=== PATIENT | male | born 1955 | race Caucasian/White ===

== ENCOUNTER 2019-10-23 13:16 | Emergency (ER) | payer OTHER ==
[~2019-10-23] VITALS: Ht 172.7 cm; Wt 70.5 kg
[2019-10-23] MEDS ORDERED: PANT40TA25 PO (13:56)
[2019-10-23] MEDS ORDERED: LISI-661 PO (13:56)
[2019-10-23] MEDS ORDERED: AMLO5TAB9 PO (13:56)
[2019-10-23] MEDS ORDERED: KCL PO (14:04)
[2019-10-23] MEDS ORDERED: BENZ0.5T44 PO (14:04)
[2019-10-23] MEDS ORDERED: DIVA-76 PO (14:04)
[2019-10-23] MEDS ORDERED: QUET200T PO (14:04)
[2019-10-23] MEDS ORDERED: LEVO330T2 PO (14:04)
[2019-10-23] MEDS ORDERED: LORA-999 PO (14:04)
[2019-10-23] MEDS ORDERED: RISP2 PO (14:04)
[2019-10-23] MEDS ORDERED: HYDR25TA PO (14:04)
[2019-10-23] MEDS ORDERED: ESCI10TA PO (14:04)
[2019-10-23] MEDS ORDERED: TRAZ-252 PO (14:04)
[2019-10-23] MEDS ORDERED: MIDAZOLAM HCL 2 MG/2 ML VIAL IVP ONE (14:45)
[2019-10-23] MEDS ORDERED: LORazepam 2 MG/ML VIAL IVP ONE (15:00)
[2019-10-23] MEDS ORDERED: HALOPERIDOL LACTATE 5 MG/ML VIAL IVP ONE (15:00)
[2019-10-23 15:19] LABS: BASOPHILS % (AUTO) 0.5 % (0.0-2.0); EOSINOPHILS % (AUTO) 2.1 % (1.0-6.0); HEMATOCRIT 37.7 % (41-53); HEMOGLOBIN 12.9 g/dL (13.5-17.5); LYMPHOCYTES # (AUTO) 1.4 K/uL (1.0-4.8); LYMPHOCYTES % (AUTO) 23.5 % (22.0-44.0); MEAN CORPUSCULAR HEMOGLOBIN 32.2 pg (26.0-34.0); MEAN CORPUSCULAR HGB CONC 34.1 G/dL (31.0-37.0); MEAN CORPUSCULAR VOLUME 94 fL (80-100); MONOCYTES # (AUTO) 0.6 K/uL (0.1-1.0); MONOCYTES % (AUTO) 10.2 % (2.0-9.0); NEUTROPHILS # (AUTO) 3.8 K/uL (1.8-7.7); NEUTROPHILS % (AUTO) 63.7 % (40.0-70.0); PLATELET COUNT (AUTO) 104 K/uL (150-450); RED BLOOD CELL COUNT(AUTO) 3.99 MIL/uL (4.50-5.90)
[2019-10-23 15:37] LABS: ANION GAP 10 mmol/L (8-16); CALCIUM, TOTAL 8.9 mg/dL (8.8-10.5); CARBON DIOXIDE 26 mmol/L (22-29); CHLORIDE 104 mmol/L (98-107); CREATININE 0.76 mg/dL (0.60-1.30); GLOMERULAR FILTR. RATE CALC > 60 mL/min (>60); GLUCOSE,RANDOM 90 mg/dL (70-110); POTASSIUM 3.6 mmol/L (3.5-5.1); SODIUM SERUM 140 mmol/L (136-145); UREA NITROGEN, BLOOD 16 mg/dL (7-18)
[2019-10-23 15:44] LABS: ALANINE AMINOTRANSFERASE 20 U/L (12-78); ALBUMIN 3.5 g/dL (3.4-5.0); ALKALINE PHOSPHATASE 69 U/L (46-116); ASPARTATE AMINOTRANSFERASE 31 U/L (15-37); BILIRUBIN,TOTAL 0.4 mg/dL (0.1-1.0); TOTAL PROTEIN, SERUM 7.9 g/dL (6.4-8.2); VALPROIC ACID 70 mcg/mL (50-100)
[2019-10-23 19:39] VITALS: BP 101/61
== END 2019-10-23 19:43 | disposition home or self-care (01) ==
LOC: EMS 13:24
DX: G40.909 Epilepsy, unspecified, not intractable, without status epilepticus (principal); I10 Essential (primary) hypertension; K21.9 Gastro-esophageal reflux disease without esophagitis; F32.9 Major depressive disorder, single episode, unspecified; Z98.890 Other specified postprocedural states; Z79.899 Other long term (current) drug therapy
CPT/HCPCS: 36415; 70450; 71045; 80053; 80164; 84484; 85025; 93005; 96374; 96375; 99285; J1630; J2060; J2250

== ENCOUNTER 2019-11-14 17:53 | Inpatient (IN) | payer OTHER ==
[~2019-11-14] VITALS: Ht 172.7 cm; Wt 69.7 kg
[~2019-11-14 17:53] MED LIST: AMLO5TAB9 PO; BENZ0.5T44 PO; DIVA-76 PO; ESCI10TA PO; HYDR-1475 PO; KCL PO; LEVO330T2 PO; LISI-661 PO; LORA-999 PO; PANT40TA25 PO; QUET200T PO; RISP2 PO; TRAZ-252 PO
[2019-11-14 19:32] LABS: BASOPHILS % (AUTO) 0.9 % (0.0-2.0); EOSINOPHILS % (AUTO) 1.4 % (1.0-6.0); HEMATOCRIT 35.9 % (41-53); HEMOGLOBIN 12.3 g/dL (13.5-17.5); LYMPHOCYTES # (AUTO) 0.8 K/uL (1.0-4.8); LYMPHOCYTES % (AUTO) 16.2 % (22.0-44.0); MEAN CORPUSCULAR HEMOGLOBIN 32.7 pg (26.0-34.0); MEAN CORPUSCULAR HGB CONC 34.3 G/dL (31.0-37.0); MEAN CORPUSCULAR VOLUME 95 fL (80-100); MONOCYTES # (AUTO) 0.7 K/uL (0.1-1.0); MONOCYTES % (AUTO) 12.7 % (2.0-9.0); NEUTROPHILS # (AUTO) 3.6 K/uL (1.8-7.7); NEUTROPHILS % (AUTO) 68.8 % (40.0-70.0); RED BLOOD CELL COUNT(AUTO) 3.77 MIL/uL (4.50-5.90); RED CELL DISTRIBUTION WIDTH 13.1 % (11.5-14.5)
[2019-11-14 19:44] LABS: ANION GAP 9 mmol/L (8-16); CARBON DIOXIDE 29 mmol/L (22-29); CHLORIDE 99 mmol/L (98-107); CREATININE 0.66 mg/dL (0.60-1.30); GLOMERULAR FILTR. RATE CALC > 60 mL/min (>60); GLUCOSE,RANDOM 117 mg/dL (70-110); POTASSIUM 3.1 mmol/L (3.5-5.1); SODIUM SERUM 137 mmol/L (136-145); UREA NITROGEN, BLOOD 20 mg/dL (7-18)
[2019-11-14 19:50] LABS: ALANINE AMINOTRANSFERASE 18 U/L (12-78); ALBUMIN 3.3 g/dL (3.4-5.0); ALKALINE PHOSPHATASE 63 U/L (46-116); ASPARTATE AMINOTRANSFERASE 20 U/L (15-37); BILIRUBIN,TOTAL 0.5 mg/dL (0.1-1.0); TOTAL PROTEIN, SERUM 7.7 g/dL (6.4-8.2)
[2019-11-14 20:05] LABS: PLATELET COUNT (AUTO) 91 K/uL (150-450)
[2019-11-14] MEDS ORDERED: IOVERSOL 320 MG/ML 100 ML VIAL ONE (20:25)
[2019-11-14] MEDS ORDERED: SODIUM CHLORIDE 0.9% 100 ML ONE (20:25)
[2019-11-14] MEDS ORDERED: MORPHINE SULFATE 4 MG/ML SYRINGE IVP ONE (20:45)
[2019-11-14] MEDS ORDERED: ONDANSETRON HCL 4 MG/2 ML VIAL IVP ONE (20:45)
[2019-11-14] MEDS ORDERED: ACETAMINOPHEN 325 MG TABLET PO PRN ×2 (21:15→22:45)
[2019-11-14] MEDS ORDERED: ONDANSETRON HCL 4 MG/2 ML VIAL IVP PRN (21:15)
[2019-11-14] MEDS ORDERED: PANTOPRAZOLE SODIUM 40 MG/VIAL IVP ONE (21:15)
[2019-11-14 21:29] LABS: OCCULT BLOOD,GASTRIC FLUID NEGATIVE (NEGATIVE)
[2019-11-14] MEDS ORDERED: POTASSIUM CHL 10 MEQ/WATER 50 ML IV PRN (22:45)
[2019-11-14] MEDS ORDERED: MAGNESIUM SULFATE 2 GM/WATER 50 ML IV PRN (22:45)
[2019-11-14] MEDS ORDERED: ZOLPIDEM TARTRATE 5 MG TABLET PO PRN (22:45)
[2019-11-14] MEDS ORDERED: 0.9% SODIUM CHLORIDE 10 ML SYRINGE IVP PRN (22:45)
[2019-11-14] MEDS ORDERED: POTASSIUM CHLORIDE 20 MEQ ER TABLET PO PRN (22:45)
[2019-11-14] MEDS ORDERED: MAGNESIUM SULFATE 4 GM/WATER 100 ML IV PRN (22:45)
[2019-11-14 23:17] VITALS: BP 104/75
[2019-11-14] MEDS: HEPARIN SODIUM,PORCINE 5,000 UNITS/ML VIAL SQ SCH (23:21)
[2019-11-15 04:30] VITALS: BP 112/74
[2019-11-15] MEDS: LORazepam 1 MG TABLET PO PRN ×2 (05:55→20:52)
[2019-11-15] MEDS: ONDANSETRON HCL 4 MG/2 ML VIAL IVP PRN ×2 (06:25→20:53)
[2019-11-15 07:35] LABS: BASOPHILS % (AUTO) 0.4 % (0.0-2.0); EOSINOPHILS % (AUTO) 2.6 % (1.0-6.0); HEMATOCRIT 33.5 % (41-53); HEMOGLOBIN 11.6 g/dL (13.5-17.5); LYMPHOCYTES % (AUTO) 26.2 % (22.0-44.0); MEAN CORPUSCULAR HEMOGLOBIN 32.8 pg (26.0-34.0); MEAN CORPUSCULAR HGB CONC 34.6 G/dL (31.0-37.0); MEAN CORPUSCULAR VOLUME 95 fL (80-100); MONOCYTES # (AUTO) 0.5 K/uL (0.1-1.0); MONOCYTES % (AUTO) 12.1 % (2.0-9.0); NEUTROPHILS # (AUTO) 2.3 K/uL (1.8-7.7); NEUTROPHILS % (AUTO) 58.7 % (40.0-70.0); PLATELET COUNT (AUTO) 89 K/uL (150-450); RED BLOOD CELL COUNT(AUTO) 3.54 MIL/uL (4.50-5.90); RED CELL DISTRIBUTION WIDTH 13.2 % (11.5-14.5)
[2019-11-15 07:43] LABS: ANION GAP 3 mmol/L (8-16); CALCIUM, TOTAL 8.7 mg/dL (8.8-10.5); CARBON DIOXIDE 33 mmol/L (22-29); CHLORIDE 104 mmol/L (98-107); CREATININE 0.56 mg/dL (0.60-1.30); GLOMERULAR FILTR. RATE CALC > 60 mL/min (>60); GLUCOSE,RANDOM 84 mg/dL (70-110); POTASSIUM 3.6 mmol/L (3.5-5.1); SODIUM SERUM 140 mmol/L (136-145); UREA NITROGEN, BLOOD 19 mg/dL (7-18)
[2019-11-15 07:51] VITALS: BP 104/68
[2019-11-15] MEDS: HEPARIN SODIUM,PORCINE 5,000 UNITS/ML VIAL SQ SCH ×3 (08:53→23:02)
[2019-11-15] MEDS: LISINOPRIL 10 MG TABLET PO SCH (08:53)
[2019-11-15] MEDS: MAGNESIUM OXIDE 400 MG TABLET PO PRN ×3 (08:53→21:35)
[2019-11-15] MEDS: TraZODone HCL 50 MG TABLET PO SCH (08:53)
[2019-11-15] MEDS: HYDROCHLOROTHIAZIDE 25 MG TABLET PO SCH (08:53)
[2019-11-15] MEDS: AmLODIPine BESYLATE 5 MG TABLET PO SCH (08:54)
[2019-11-15] MEDS: PANTOPRAZOLE SODIUM 40 MG DR TABLET PO SCH (08:54)
[2019-11-15] MEDS: DIVALPROEX SODIUM 250 MG DR TABLET PO SCH (08:54)
[2019-11-15] MEDS: BENZTROPINE MESYLATE 0.5 MG TABLET PO SCH (08:54)
[2019-11-15] MEDS: DOCUSATE SODIUM 100 MG CAPSULE PO SCH ×2 (08:54→20:56)
[2019-11-15] MEDS ORDERED: QUEtiapine FUMARATE 200 MG TABLET PO SCH (09:00)
[2019-11-15] MEDS ORDERED: PANTOPRAZOLE SODIUM 40 MG DR TABLET PO SCH (09:00)
[2019-11-15] MEDS ORDERED: ESCITALOPRAM OXALATE 10 MG TABLET PO SCH (09:00)
[2019-11-15] MEDS ORDERED: RisperiDONE 2 MG TABLET PO SCH (09:00)
[2019-11-15 11:52] VITALS: BP 126/93
[2019-11-15 15:39] VITALS: BP 107/77
[2019-11-15 19:43] VITALS: BP 104/76
[2019-11-15] MEDS: RisperiDONE 2 MG TABLET PO SCH (20:52)
[2019-11-15 23:50] VITALS: BP 116/84
[2019-11-16 05:07] VITALS: BP 133/98
[2019-11-16 08:30] VITALS: BP 129/88
[2019-11-16] MEDS: HEPARIN SODIUM,PORCINE 5,000 UNITS/ML VIAL SQ SCH (08:48)
[2019-11-16] MEDS: DIVALPROEX SODIUM 250 MG DR TABLET PO SCH (08:50)
[2019-11-16] MEDS: TraZODone HCL 50 MG TABLET PO SCH (08:50)
[2019-11-16] MEDS: LISINOPRIL 10 MG TABLET PO SCH (08:51)
[2019-11-16] MEDS: RisperiDONE 2 MG TABLET PO SCH (08:51)
[2019-11-16] MEDS: AmLODIPine BESYLATE 5 MG TABLET PO SCH (08:51)
[2019-11-16] MEDS: BENZTROPINE MESYLATE 0.5 MG TABLET PO SCH (08:52)
[2019-11-16] MEDS ORDERED: ESCITALOPRAM OXALATE 10 MG TABLET PO SCH (09:00)
[2019-11-16] MEDS: DOCUSATE SODIUM 100 MG CAPSULE PO SCH (09:00)
[2019-11-16] MEDS ORDERED: MULTIVITAMINS WITH MINERALS, THERAPEUTIC TABLET PO SCH (09:00)
[2019-11-16 09:12] LABS: BASOPHILS % (AUTO) 0.3 % (0.0-2.0); EOSINOPHILS % (AUTO) 0.7 % (1.0-6.0); HEMATOCRIT 34.4 % (41-53); HEMOGLOBIN 11.9 g/dL (13.5-17.5); LYMPHOCYTES # (AUTO) 0.6 K/uL (1.0-4.8); LYMPHOCYTES % (AUTO) 13.9 % (22.0-44.0); MEAN CORPUSCULAR HEMOGLOBIN 32.9 pg (26.0-34.0); MEAN CORPUSCULAR HGB CONC 34.7 G/dL (31.0-37.0); MEAN CORPUSCULAR VOLUME 95 fL (80-100); MONOCYTES # (AUTO) 0.3 K/uL (0.1-1.0); MONOCYTES % (AUTO) 6.6 % (2.0-9.0); NEUTROPHILS # (AUTO) 3.6 K/uL (1.8-7.7); NEUTROPHILS % (AUTO) 78.5 % (40.0-70.0); PLATELET COUNT (AUTO) 92 K/uL (150-450); RED BLOOD CELL COUNT(AUTO) 3.63 MIL/uL (4.50-5.90); RED CELL DISTRIBUTION WIDTH 13.2 % (11.5-14.5)
[2019-11-16 09:21] LABS: ANION GAP 6 mmol/L (8-16); CALCIUM, TOTAL 8.4 mg/dL (8.8-10.5); CARBON DIOXIDE 29 mmol/L (22-29); CHLORIDE 101 mmol/L (98-107); GLOMERULAR FILTR. RATE CALC > 60 mL/min (>60); GLUCOSE,RANDOM 146 mg/dL (70-110); POTASSIUM 3.8 mmol/L (3.5-5.1); SODIUM SERUM 136 mmol/L (136-145); UREA NITROGEN, BLOOD 18 mg/dL (7-18)
[2019-11-16] MEDS: PANTOPRAZOLE SODIUM 40 MG DR TABLET PO SCH (09:32)
[2019-11-16] MEDS: HYDROCHLOROTHIAZIDE 25 MG TABLET PO SCH (09:32)
[2019-11-16] MEDS ORDERED: MULT-723 PO (10:06)
[2019-11-16] MEDS ORDERED: DOCU-275 PO (10:06)
[2019-11-16] MEDS: LORazepam 1 MG TABLET PO PRN (10:22)
[2019-11-16 11:27] VITALS: BP 103/68
== END 2019-11-16 12:00 | disposition home or self-care (01) | DRG 241 ==
LOC: EMS 17:54 → 6N 22:18
PROVIDERS: ADMIT Internal Medicine; ATTEND Internal Medicine
DX: K29.01 Acute gastritis with bleeding (principal); R45.851 Suicidal ideations; F25.1 Schizoaffective disorder, depressive type; F32.9 Major depressive disorder, single episode, unspecified; I10 Essential (primary) hypertension; K21.9 Gastro-esophageal reflux disease without esophagitis; F41.9 Anxiety disorder, unspecified; R62.59 Other lack of expected normal physiological development in childhood; Z91.5 Personal history of self-harm; Z90.49 Acquired absence of other specified parts of digestive tract; Z87.11 Personal history of peptic ulcer disease
CPT/HCPCS: 74177; 82271; 83735; C9113; G0480; J1644; J2270; J2405; J7050

== ENCOUNTER 2019-11-27 13:58 | Inpatient (IN) | payer OTHER ==
[~2019-11-27] VITALS: Ht 172.7 cm; Wt 58.4 kg
[~2019-11-27 13:58] MED LIST changes: +DOCU-275 PO; -KCL PO; +MULT-723 PO
[2019-11-27] MEDS ORDERED: BENZTROPINE MESYLATE 1 MG/ML 2 ML VIAL IVP ONE (16:15)
[2019-11-27] MEDS ORDERED: ONDANSETRON HCL 4 MG/2 ML VIAL IVP ONE (16:15)
[2019-11-27] MEDS ORDERED: PANTOPRAZOLE SODIUM 40 MG/VIAL IVP ONE (16:15)
[2019-11-27] MEDS ORDERED: SODIUM CHLORIDE 0.9% 100 ML ONE (16:16)
[2019-11-27] MEDS ORDERED: IOVERSOL 350 MG/ML 100 ML VIAL ONE (16:17)
[2019-11-27 16:31] LABS: BASOPHILS % (AUTO) 0.2 % (0.0-2.0); EOSINOPHILS % (AUTO) 0.8 % (1.0-6.0); HEMATOCRIT 38.1 % (41-53); HEMOGLOBIN 12.9 g/dL (13.5-17.5); LYMPHOCYTES # (AUTO) 0.9 K/uL (1.0-4.8); LYMPHOCYTES % (AUTO) 12.8 % (22.0-44.0); MEAN CORPUSCULAR HEMOGLOBIN 32.7 pg (26.0-34.0); MEAN CORPUSCULAR VOLUME 96 fL (80-100); MONOCYTES # (AUTO) 0.3 K/uL (0.1-1.0); NEUTROPHILS # (AUTO) 5.5 K/uL (1.8-7.7); NEUTROPHILS % (AUTO) 81.2 % (40.0-70.0); PLATELET COUNT (AUTO) 102 K/uL (150-450); RED BLOOD CELL COUNT(AUTO) 3.96 MIL/uL (4.50-5.90)
[2019-11-27 16:41] LABS: OCCULT BLOOD,GASTRIC FLUID POSITIVE (NEGATIVE)
[2019-11-27 16:43] LABS: ANION GAP 7 mmol/L (8-16); CALCIUM, TOTAL 9.3 mg/dL (8.8-10.5); CARBON DIOXIDE 30 mmol/L (22-29); CHLORIDE 103 mmol/L (98-107); CREATININE 0.82 mg/dL (0.60-1.30); GLOMERULAR FILTR. RATE CALC > 60 mL/min (>60); GLUCOSE,RANDOM 144 mg/dL (70-110); POTASSIUM 3.1 mmol/L (3.5-5.1); SODIUM SERUM 140 mmol/L (136-145); UREA NITROGEN, BLOOD 13 mg/dL (7-18)
[2019-11-27 16:44] LABS: PROTHROMBIN TIME 10.3 SEC (9.4-11.6)
[2019-11-27 16:49] LABS: ALANINE AMINOTRANSFERASE 28 U/L (12-78); ALBUMIN 3.9 g/dL (3.4-5.0); ALKALINE PHOSPHATASE 76 U/L (46-116); ASPARTATE AMINOTRANSFERASE 38 U/L (15-37); BILIRUBIN,TOTAL 0.4 mg/dL (0.1-1.0); LIPASE 104 U/L (73-393); TOTAL PROTEIN, SERUM 8.7 g/dL (6.4-8.2)
[2019-11-27 16:53] LABS: VALPROIC ACID < 3 mcg/mL (50-100)
[2019-11-27] MEDS: PANTOPRAZOLE SODIUM 80 MG in SODIUM CHLORIDE 0.9% 100 ML IV SCH (19:03)
[2019-11-27] MEDS: POTASSIUM CHL 10 MEQ/WATER 50 ML IV SCH ×2 (19:37→19:46)
[2019-11-27] MEDS ORDERED: 0.9% SODIUM CHLORIDE 10 ML SYRINGE IVP PRN (20:45)
[2019-11-27] MEDS ORDERED: LORazepam 2 MG/ML VIAL IVP ONE (20:45)
[2019-11-27] MEDS ORDERED: SODIUM CHLORIDE 0.9% 1,000 ML IV ONE (20:45)
[2019-11-27] MEDS ORDERED: ACETAMINOPHEN 325 MG TABLET PO PRN (20:45)
[2019-11-27] MEDS ORDERED: ONDANSETRON HCL 4 MG/2 ML VIAL IVP PRN (20:45)
[2019-11-27 22:06] VITALS: BP 109/84
[2019-11-28 01:07] LABS: HEMATOCRIT 30.9 % (41-53); HEMOGLOBIN 10.6 g/dL (13.5-17.5)
[2019-11-28 01:14] LABS: APPEARANCE,URINE CLEAR (CLEAR); BILIRUBIN,URINE NEGATIVE (NEGATIVE); GLUCOSE, URINE (UA) NEGATIVE (NEGATIVE); KETONES,URINE TRACE mg/dL (NEGATIVE); LEUKOCYTE ESTERASE ,URINE NEGATIVE (NEGATIVE); NITRATE,URINE NEGATIVE (NEGATIVE); OCCULT BLOOD,URINE NEGATIVE (NEGATIVE); PH,URINE 7.5 (5.0-8.0); PROTEIN,URINE NEGATIVE (NEGATIVE)
[2019-11-28 01:19] LABS: AMPHET/METH SCREEN,URINE NEGATIVE (NEGATIVE); BARBITURATE SCREEN, URINE NEGATIVE (NEGATIVE); BENZODIAZEPINES SCREEN,URINE NEGATIVE (NEGATIVE); CANNABINOID SCREEN,URINE NEGATIVE (NEGATIVE); COCAINE SCREEN,URINE NEGATIVE (NEGATIVE); METHADONE SCREEN, URINE NEGATIVE (NEGATIVE); OPIATE SCREEN,URINE NEGATIVE (NEGATIVE)
[2019-11-28 01:21] LABS: PHENCYCLIDINE SCREEN,URINE NEGATIVE (NEGATIVE)
[2019-11-28] MEDS: LORazepam 2 MG/ML VIAL IVP PRN ×2 (02:58→12:40)
[2019-11-28 04:52] VITALS: BP 124/95
[2019-11-28] MEDS: PANTOPRAZOLE SODIUM 80 MG in SODIUM CHLORIDE 0.9% 100 ML IV SCH (05:29)
[2019-11-28 07:01] LABS: BASOPHILS % (AUTO) 0.4 % (0.0-2.0); EOSINOPHILS % (AUTO) 1.5 % (1.0-6.0); HEMATOCRIT 32.2 % (41-53); HEMOGLOBIN 11.2 g/dL (13.5-17.5); LYMPHOCYTES % (AUTO) 21.7 % (22.0-44.0); MEAN CORPUSCULAR HEMOGLOBIN 33.2 pg (26.0-34.0); MEAN CORPUSCULAR HGB CONC 34.8 G/dL (31.0-37.0); MEAN CORPUSCULAR VOLUME 95 fL (80-100); MONOCYTES # (AUTO) 0.4 K/uL (0.1-1.0); MONOCYTES % (AUTO) 8.1 % (2.0-9.0); NEUTROPHILS % (AUTO) 68.3 % (40.0-70.0); PLATELET COUNT (AUTO) 83 K/uL (150-450); RED BLOOD CELL COUNT(AUTO) 3.38 MIL/uL (4.50-5.90); RED CELL DISTRIBUTION WIDTH 13.7 % (11.5-14.5)
[2019-11-28 07:26] VITALS: BP 127/87
[2019-11-28 07:32] LABS: ALANINE AMINOTRANSFERASE 23 U/L (12-78); ALBUMIN 3.1 g/dL (3.4-5.0); ALKALINE PHOSPHATASE 54 U/L (46-116); ANION GAP 5 mmol/L (8-16); ASPARTATE AMINOTRANSFERASE 24 U/L (15-37); BILIRUBIN,TOTAL 0.4 mg/dL (0.1-1.0); CALCIUM, TOTAL 8.8 mg/dL (8.8-10.5); CARBON DIOXIDE 29 mmol/L (22-29); CHLORIDE 107 mmol/L (98-107); CREATININE 0.69 mg/dL (0.60-1.30); GLOMERULAR FILTR. RATE CALC > 60 mL/min (>60); GLUCOSE,RANDOM 92 mg/dL (70-110); POTASSIUM 3.3 mmol/L (3.5-5.1); SODIUM SERUM 141 mmol/L (136-145); TOTAL PROTEIN, SERUM 6.9 g/dL (6.4-8.2); UREA NITROGEN, BLOOD 13 mg/dL (7-18)
[2019-11-28 07:41] LABS: INR 1.1 (0.9-1.1); PROTHROMBIN TIME 10.8 SEC (9.4-11.6)
[2019-11-28] MEDS ORDERED: LORazepam 0.5 MG TABLET PO PRN (08:15)
[2019-11-28 09:00] LABS: HEMATOCRIT 31.9 % (41-53); HEMOGLOBIN 11.1 g/dL (13.5-17.5)
[2019-11-28] MEDS: DIVALPROEX SODIUM 250 MG DR TABLET PO SCH (09:00)
[2019-11-28] MEDS ORDERED: LEVOCARNITINE 330 MG PO SCH (09:00)
[2019-11-28] MEDS ORDERED: HYDROCHLOROTHIAZIDE 25 MG TABLET PO SCH (09:00)
[2019-11-28] MEDS ORDERED: TraZODone HCL 50 MG TABLET PO SCH (09:00)
[2019-11-28] MEDS: QUEtiapine FUMARATE 200 MG TABLET PO SCH (09:50)
[2019-11-28] MEDS: LISINOPRIL 10 MG TABLET PO SCH (09:50)
[2019-11-28] MEDS: DOCUSATE SODIUM 100 MG CAPSULE PO SCH ×2 (09:50→21:19)
[2019-11-28] MEDS: MULTIVITAMINS WITH MINERALS, THERAPEUTIC TABLET PO SCH (09:50)
[2019-11-28] MEDS: RisperiDONE 2 MG TABLET PO SCH (09:50)
[2019-11-28] MEDS: PANTOPRAZOLE SODIUM 40 MG DR TABLET PO SCH (09:50)
[2019-11-28] MEDS: ESCITALOPRAM OXALATE 10 MG TABLET PO SCH (09:50)
[2019-11-28] MEDS: BENZTROPINE MESYLATE 0.5 MG TABLET PO SCH (09:51)
[2019-11-28] MEDS: AmLODIPine BESYLATE 5 MG TABLET PO SCH (09:54)
[2019-11-28] MEDS ORDERED: POTASSIUM CHLORIDE 20 MEQ ER TABLET PO PRN (10:00)
[2019-11-28] MEDS ORDERED: POTASSIUM CHL 10 MEQ/WATER 50 ML IV PRN (10:00)
[2019-11-28 11:12] VITALS: BP 111/76
[2019-11-28] MEDS: SODIUM CHLORIDE 0.9% 1,000 ML IV SCH (13:20)
[2019-11-28 15:14] VITALS: BP 125/75
[2019-11-28 15:47] LABS: HEMATOCRIT 37.1 % (41-53); HEMOGLOBIN 12.5 g/dL (13.5-17.5)
[2019-11-28 20:00] VITALS: BP 100/49
[2019-11-28 20:42] LABS: HEMATOCRIT 27.4 % (41-53); HEMOGLOBIN 9.3 g/dL (13.5-17.5)
[2019-11-28] MEDS: TraZODone HCL 50 MG TABLET PO SCH (21:19)
[2019-11-29] VITALS (7 sets, daily range): BP systolic 91–129; BP diastolic 62–88
[2019-11-29] MEDS ORDERED: LIDOCAINE 1% 10 ML VIAL IM ONE (05:19)
[2019-11-29] MEDS ORDERED: PROPOFOL 1% 20 ML VIAL IVP ONE (05:19)
[2019-11-29] MEDS: LORazepam 2 MG/ML VIAL IVP PRN ×2 (05:26→16:54)
[2019-11-29] MEDS: DOCUSATE SODIUM 100 MG CAPSULE PO SCH ×2 (08:49→21:10)
[2019-11-29] MEDS: BENZTROPINE MESYLATE 0.5 MG TABLET PO SCH (08:49)
[2019-11-29] MEDS: DIVALPROEX SODIUM 250 MG DR TABLET PO SCH (08:50)
[2019-11-29] MEDS: ESCITALOPRAM OXALATE 10 MG TABLET PO SCH (08:50)
[2019-11-29] MEDS: QUEtiapine FUMARATE 200 MG TABLET PO SCH (08:50)
[2019-11-29] MEDS: RisperiDONE 2 MG TABLET PO SCH (08:50)
[2019-11-29] MEDS: AmLODIPine BESYLATE 5 MG TABLET PO SCH (08:50)
[2019-11-29] MEDS: MULTIVITAMINS WITH MINERALS, THERAPEUTIC TABLET PO SCH (08:50)
[2019-11-29] MEDS: LISINOPRIL 10 MG TABLET PO SCH (08:50)
[2019-11-29] MEDS: PANTOPRAZOLE SODIUM 40 MG DR TABLET PO SCH (08:50)
[2019-11-29 09:14] LABS: BASOPHILS % (AUTO) 0.7 % (0.0-2.0); EOSINOPHILS % (AUTO) 3.3 % (1.0-6.0); HEMATOCRIT 31.1 % (41-53); HEMOGLOBIN 10.9 g/dL (13.5-17.5); LYMPHOCYTES # (AUTO) 1.1 K/uL (1.0-4.8); LYMPHOCYTES % (AUTO) 28.5 % (22.0-44.0); MEAN CORPUSCULAR HEMOGLOBIN 33.6 pg (26.0-34.0); MEAN CORPUSCULAR VOLUME 96 fL (80-100); MONOCYTES # (AUTO) 0.2 K/uL (0.1-1.0); MONOCYTES % (AUTO) 6.2 % (2.0-9.0); NEUTROPHILS # (AUTO) 2.4 K/uL (1.8-7.7); NEUTROPHILS % (AUTO) 61.3 % (40.0-70.0); PLATELET COUNT (AUTO) 86 K/uL (150-450); RED BLOOD CELL COUNT(AUTO) 3.23 MIL/uL (4.50-5.90); RED CELL DISTRIBUTION WIDTH 13.5 % (11.5-14.5)
[2019-11-29] MEDS: SODIUM CHLORIDE 0.9% 1,000 ML IV SCH (13:41)
[2019-11-29] MEDS ORDERED: PANTOPRAZOLE SODIUM 40 MG/VIAL IVP ONE (16:00)
[2019-11-29] MEDS: ONDANSETRON HCL 4 MG/2 ML VIAL IVP PRN (16:01)
[2019-11-29] MEDS ORDERED: PANTOPRAZOLE SODIUM 40 MG DR TABLET PO SCH (21:00)
[2019-11-29] MEDS: TraZODone HCL 50 MG TABLET PO SCH (21:10)
[2019-11-30 00:15] VITALS: BP 107/90
[2019-11-30 04:02] VITALS: BP 124/78
[2019-11-30] MEDS: ONDANSETRON HCL 4 MG/2 ML VIAL IVP PRN (06:02)
[2019-11-30 08:18] VITALS: BP 129/93
[2019-11-30] MEDS: QUEtiapine FUMARATE 200 MG TABLET PO SCH (08:31)
[2019-11-30] MEDS: LISINOPRIL 10 MG TABLET PO SCH (08:31)
[2019-11-30] MEDS: MULTIVITAMINS WITH MINERALS, THERAPEUTIC TABLET PO SCH (08:31)
[2019-11-30] MEDS: DOCUSATE SODIUM 100 MG CAPSULE PO SCH (08:32)
[2019-11-30] MEDS: ESCITALOPRAM OXALATE 10 MG TABLET PO SCH (08:32)
[2019-11-30] MEDS: RisperiDONE 2 MG TABLET PO SCH (08:33)
[2019-11-30] MEDS: DIVALPROEX SODIUM 250 MG DR TABLET PO SCH (08:33)
[2019-11-30] MEDS: BENZTROPINE MESYLATE 0.5 MG TABLET PO SCH (08:39)
[2019-11-30] MEDS: AmLODIPine BESYLATE 5 MG TABLET PO SCH (08:39)
[2019-11-30] MEDS ORDERED: PANTOPRAZOLE SODIUM 40 MG DR TABLET PO SCH (09:00)
[2019-11-30 12:05] VITALS: BP 118/86
[2019-11-30] MEDS: SODIUM CHLORIDE 0.9% 1,000 ML IV SCH (13:00)
== END 2019-11-30 15:20 | disposition home or self-care (01) | DRG 243 ==
LOC: EMS 13:59 → 5N 20:00
PROVIDERS: ADMIT Hospitalist; ATTEND Hospitalist
PROC: 0DB54ZX Excision of Esophagus, Percutaneous Endoscopic Approach, Diagnostic (ICD-10-PCS; principal; 2019-11-28 14:00)
DX: K22.70 Barrett's esophagus without dysplasia (principal); F20.9 Schizophrenia, unspecified; K92.2 Gastrointestinal hemorrhage, unspecified; I10 Essential (primary) hypertension; G24.01 Drug induced subacute dyskinesia; K44.9 Diaphragmatic hernia without obstruction or gangrene; D64.9 Anemia, unspecified; E87.6 Hypokalemia; F41.9 Anxiety disorder, unspecified; F32.9 Major depressive disorder, single episode, unspecified; K21.9 Gastro-esophageal reflux disease without esophagitis; Z90.49 Acquired absence of other specified parts of digestive tract; Z79.899 Other long term (current) drug therapy
CPT/HCPCS: 74018; 74177; 82271; 84132; 85014; 85018; 86850; 86900; 86901; 87081; 88305; 88312; 88313; 93005; 96365; 99291; C9113; J0515; J2060; J2405; J2704; J3480; J3490; J7030; J7050

== ENCOUNTER 2019-11-27 14:37 | Emergency (ER) | payer OTHER | END 2019-11-27 14:58 | disposition left against medical advice (07) | LOC: EMS 14:39 | DX: R10.9 Unspecified abdominal pain (principal); Z53.21 Procedure and treatment not carried out due to patient leaving prior to being seen by health care provider ==

== ENCOUNTER 2019-12-01 09:02 | Emergency (ER) | payer OTHER ==
[~2019-12-01] VITALS: Ht 172.7 cm; Wt 81.4 kg
[2019-12-01 09:15] VITALS: BP 129/79
[2019-12-01] MEDS ORDERED: LORazepam 1 MG TABLET PO ONE (09:15)
[2019-12-01] MEDS ORDERED: LORazepam 2 MG/ML VIAL ONE (10:31)
[2019-12-01] MEDS ORDERED: LORazepam 2 MG/ML VIAL IM ONE (10:45)
== END 2019-12-01 11:57 | disposition home or self-care (01) ==
LOC: EMS 09:08
DX: F41.9 Anxiety disorder, unspecified (principal); F20.9 Schizophrenia, unspecified; K21.9 Gastro-esophageal reflux disease without esophagitis; Z98.890 Other specified postprocedural states; Z79.899 Other long term (current) drug therapy
CPT/HCPCS: 71046; 96372; 99283; J2060

== ENCOUNTER 2019-12-03 17:23 | Inpatient (IN) | payer OTHER ==
[~2019-12-03] VITALS: Ht 172.7 cm; Wt 67.1 kg
[~2019-12-03 17:23] MED LIST changes: -AMLO5TAB9 PO; -HYDR-1475 PO; -LEVO330T2 PO; -LISI-661 PO
[2019-12-03] MEDS ORDERED: LORazepam 2 MG/ML VIAL IVP ONE (18:00)
[2019-12-03] MEDS ORDERED: MORPHINE SULFATE 4 MG/ML SYRINGE IVP ONE (18:00)
[2019-12-03] MEDS ORDERED: ONDANSETRON HCL 4 MG/2 ML VIAL IVP ONE (18:00)
[2019-12-03] MEDS ORDERED: PANTOPRAZOLE SODIUM 40 MG/VIAL IVP ONE (18:00)
[2019-12-03] MEDS ORDERED: SODIUM CHLORIDE 0.9% 1,000 ML IV ONE (18:00)
[2019-12-03 18:09] LABS: BASOPHILS % (AUTO) 0.8 % (0.0-2.0); EOSINOPHILS % (AUTO) 1.4 % (1.0-6.0); HEMATOCRIT 30.9 % (41-53); HEMOGLOBIN 10.5 g/dL (13.5-17.5); LYMPHOCYTES # (AUTO) 0.9 K/uL (1.0-4.8); LYMPHOCYTES % (AUTO) 18.9 % (22.0-44.0); MEAN CORPUSCULAR HGB CONC 34.1 G/dL (31.0-37.0); MEAN CORPUSCULAR VOLUME 97 fL (80-100); MONOCYTES # (AUTO) 0.3 K/uL (0.1-1.0); MONOCYTES % (AUTO) 6.4 % (2.0-9.0); NEUTROPHILS # (AUTO) 3.6 K/uL (1.8-7.7); NEUTROPHILS % (AUTO) 72.5 % (40.0-70.0); RED BLOOD CELL COUNT(AUTO) 3.18 MIL/uL (4.50-5.90)
[2019-12-03 18:26] LABS: ANION GAP 9 mmol/L (8-16); CALCIUM, TOTAL 9.1 mg/dL (8.8-10.5); CARBON DIOXIDE 27 mmol/L (22-29); CHLORIDE 104 mmol/L (98-107); CREATININE 0.75 mg/dL (0.60-1.30); GLOMERULAR FILTR. RATE CALC > 60 mL/min (>60); GLUCOSE,RANDOM 98 mg/dL (70-110); POTASSIUM 3.8 mmol/L (3.5-5.1); SODIUM SERUM 140 mmol/L (136-145); UREA NITROGEN, BLOOD 13 mg/dL (7-18)
[2019-12-03 18:34] LABS: ALANINE AMINOTRANSFERASE 28 U/L (12-78); ALBUMIN 3.4 g/dL (3.4-5.0); ALKALINE PHOSPHATASE 60 U/L (46-116); ASPARTATE AMINOTRANSFERASE 30 U/L (15-37); BILIRUBIN,TOTAL 0.5 mg/dL (0.1-1.0); LIPASE 61 U/L (73-393); TOTAL PROTEIN, SERUM 7.4 g/dL (6.4-8.2)
[2019-12-03 19:04] LABS: PLATELET COUNT (AUTO) 94 K/uL (150-450); PLATELET MORPHOLOGY COMMENT DECREASED
[2019-12-03] MEDS ORDERED: ONDANSETRON HCL 4 MG/2 ML VIAL IVP PRN ×2 (19:45→23:00)
[2019-12-03] MEDS ORDERED: MORPHINE SULFATE 4 MG/ML SYRINGE IVP PRN (19:45)
[2019-12-03] MEDS ORDERED: MAGNESIUM HYDROXIDE SUSPENSION 30 ML UDCUP PO PRN (23:00)
[2019-12-03] MEDS ORDERED: ZOLPIDEM TARTRATE 5 MG TABLET PO PRN (23:00)
[2019-12-03] MEDS ORDERED: BISACODYL 10 MG RECTAL RECTAL SUPPOSITORY PR PRN (23:00)
[2019-12-03] MEDS: PANTOPRAZOLE SODIUM 80 MG in SODIUM CHLORIDE 0.9% 100 ML IV SCH (23:22)
[2019-12-04] VITALS (7 sets, daily range): BP systolic 113–138; BP diastolic 64–90
[2019-12-04] MEDS: DOCUSATE SODIUM 100 MG CAPSULE PO SCH ×2 (07:58→20:59)
[2019-12-04] MEDS: BENZTROPINE MESYLATE 0.5 MG TABLET PO SCH (07:59)
[2019-12-04] MEDS: ESCITALOPRAM OXALATE 10 MG TABLET PO SCH (07:59)
[2019-12-04] MEDS: MORPHINE SULFATE 2 MG/ML SYRINGE IVP PRN (08:01)
[2019-12-04] MEDS: PANTOPRAZOLE SODIUM 80 MG in SODIUM CHLORIDE 0.9% 100 ML IV SCH ×2 (08:16→21:56)
[2019-12-04] MEDS ORDERED: RisperiDONE 2 MG TABLET PO SCH (09:00)
[2019-12-04] MEDS ORDERED: PANTOPRAZOLE SODIUM 40 MG DR TABLET PO SCH (09:00)
[2019-12-04] MEDS ORDERED: QUEtiapine FUMARATE 200 MG TABLET PO SCH (09:00)
[2019-12-04 10:56] LABS: HEMATOCRIT 28.2 % (41-53); HEMOGLOBIN 9.7 g/dL (13.5-17.5)
[2019-12-04] MEDS: DIVALPROEX SODIUM 250 MG DR TABLET PO SCH (12:12)
[2019-12-04] MEDS: RisperiDONE 2 MG TABLET PO SCH (20:59)
[2019-12-04] MEDS: TraZODone HCL 50 MG TABLET PO SCH (20:59)
[2019-12-05] MEDS: MORPHINE SULFATE 2 MG/ML SYRINGE IVP PRN (04:15)
[2019-12-05 04:23] VITALS: BP 130/91
[2019-12-05] MEDS ORDERED: LORazepam 2 MG/ML VIAL IVP ONE (04:30)
[2019-12-05] MEDS: PANTOPRAZOLE SODIUM 80 MG in SODIUM CHLORIDE 0.9% 100 ML IV SCH ×2 (05:42→16:38)
[2019-12-05 06:50] LABS: BASOPHILS % (AUTO) 0.5 % (0.0-2.0); EOSINOPHILS % (AUTO) 3.5 % (1.0-6.0); HEMATOCRIT 28.8 % (41-53); HEMOGLOBIN 9.9 g/dL (13.5-17.5); LYMPHOCYTES # (AUTO) 0.8 K/uL (1.0-4.8); MEAN CORPUSCULAR HEMOGLOBIN 33.1 pg (26.0-34.0); MEAN CORPUSCULAR HGB CONC 34.5 G/dL (31.0-37.0); MEAN CORPUSCULAR VOLUME 96 fL (80-100); MONOCYTES # (AUTO) 0.3 K/uL (0.1-1.0); MONOCYTES % (AUTO) 9.5 % (2.0-9.0); NEUTROPHILS % (AUTO) 62.5 % (40.0-70.0); PLATELET COUNT (AUTO) 85 K/uL (150-450)
[2019-12-05 07:08] LABS: ALANINE AMINOTRANSFERASE 20 U/L (12-78); ALBUMIN 2.8 g/dL (3.4-5.0); ALKALINE PHOSPHATASE 52 U/L (46-116); ANION GAP 5 mmol/L (8-16); ASPARTATE AMINOTRANSFERASE 18 U/L (15-37); BILIRUBIN,TOTAL 0.3 mg/dL (0.1-1.0); CALCIUM, TOTAL 8.5 mg/dL (8.8-10.5); CARBON DIOXIDE 27 mmol/L (22-29); CHLORIDE 108 mmol/L (98-107); CREATININE 0.67 mg/dL (0.60-1.30); GLOMERULAR FILTR. RATE CALC > 60 mL/min (>60); GLUCOSE,RANDOM 96 mg/dL (70-110); POTASSIUM 3.6 mmol/L (3.5-5.1); SODIUM SERUM 140 mmol/L (136-145); TOTAL PROTEIN, SERUM 6.4 g/dL (6.4-8.2); UREA NITROGEN, BLOOD 5 mg/dL (7-18)
[2019-12-05 08:12] VITALS: BP 133/95
[2019-12-05] MEDS: HYDROCODONE/ACETAMINOPHEN 5-325 MG TABLET PO PRN ×2 (10:48→16:38)
[2019-12-05] MEDS: ESCITALOPRAM OXALATE 10 MG TABLET PO SCH (10:49)
[2019-12-05] MEDS: DIVALPROEX SODIUM 250 MG DR TABLET PO SCH (10:49)
[2019-12-05] MEDS: RisperiDONE 2 MG TABLET PO SCH ×2 (10:49→20:27)
[2019-12-05] MEDS: BENZTROPINE MESYLATE 0.5 MG TABLET PO SCH (10:49)
[2019-12-05] MEDS: DOCUSATE SODIUM 100 MG CAPSULE PO SCH ×2 (10:50→20:27)
[2019-12-05] MEDS ORDERED: ALPRAZolam 0.25 MG TABLET PO ONE (16:30)
[2019-12-05] MEDS: ACETAMINOPHEN 325 MG TABLET PO PRN (18:30)
[2019-12-05 19:34] VITALS: BP 138/84
[2019-12-05] MEDS: TraZODone HCL 50 MG TABLET PO SCH (20:27)
[2019-12-05 23:25] VITALS: BP 124/78
[2019-12-06] MEDS: PANTOPRAZOLE SODIUM 80 MG in SODIUM CHLORIDE 0.9% 100 ML IV SCH (00:35)
[2019-12-06] MEDS ORDERED: HALOPERIDOL LACTATE 5 MG/ML VIAL IM ONE (04:15)
[2019-12-06] MEDS: ACETAMINOPHEN 325 MG TABLET PO PRN (05:39)
[2019-12-06 06:54] LABS: BASOPHILS % (AUTO) 0.6 % (0.0-2.0); EOSINOPHILS % (AUTO) 2.5 % (1.0-6.0); HEMATOCRIT 29.2 % (41-53); HEMOGLOBIN 10.3 g/dL (13.5-17.5); LYMPHOCYTES # (AUTO) 0.9 K/uL (1.0-4.8); LYMPHOCYTES % (AUTO) 30.1 % (22.0-44.0); MEAN CORPUSCULAR HEMOGLOBIN 33.6 pg (26.0-34.0); MEAN CORPUSCULAR HGB CONC 35.3 G/dL (31.0-37.0); MEAN CORPUSCULAR VOLUME 95 fL (80-100); MONOCYTES # (AUTO) 0.3 K/uL (0.1-1.0); MONOCYTES % (AUTO) 9.5 % (2.0-9.0); NEUTROPHILS # (AUTO) 1.7 K/uL (1.8-7.7); NEUTROPHILS % (AUTO) 57.3 % (40.0-70.0); PLATELET COUNT (AUTO) 91 K/uL (150-450); RED BLOOD CELL COUNT(AUTO) 3.07 MIL/uL (4.50-5.90); RED CELL DISTRIBUTION WIDTH 13.6 % (11.5-14.5)
[2019-12-06 07:07] LABS: ANION GAP 8 mmol/L (8-16); CALCIUM, TOTAL 8.5 mg/dL (8.8-10.5); CARBON DIOXIDE 25 mmol/L (22-29); CHLORIDE 106 mmol/L (98-107); GLOMERULAR FILTR. RATE CALC > 60 mL/min (>60); GLUCOSE,RANDOM 111 mg/dL (70-110); POTASSIUM 3.7 mmol/L (3.5-5.1); SODIUM SERUM 139 mmol/L (136-145); UREA NITROGEN, BLOOD 10 mg/dL (7-18)
[2019-12-06 07:51] VITALS: BP 143/97
[2019-12-06] MEDS: ALPRAZolam 0.5 MG TABLET PO SCH ×3 (08:07→20:14)
[2019-12-06] MEDS: BENZTROPINE MESYLATE 0.5 MG TABLET PO SCH (08:08)
[2019-12-06] MEDS: DIVALPROEX SODIUM 250 MG DR TABLET PO SCH (08:08)
[2019-12-06] MEDS: DOCUSATE SODIUM 100 MG CAPSULE PO SCH ×2 (08:08→20:15)
[2019-12-06] MEDS: RisperiDONE 2 MG TABLET PO SCH ×2 (08:08→20:14)
[2019-12-06] MEDS: ESCITALOPRAM OXALATE 10 MG TABLET PO SCH (08:08)
[2019-12-06 11:07] VITALS: BP 145/98
[2019-12-06] MEDS: HYDROCODONE/ACETAMINOPHEN 5-325 MG TABLET PO PRN ×2 (12:37→15:58)
[2019-12-06 15:22] VITALS: BP 126/106
[2019-12-06 19:41] VITALS: BP 125/84
[2019-12-06] MEDS: TraZODone HCL 50 MG TABLET PO SCH (20:15)
[2019-12-06 23:06] VITALS: BP 120/78
[2019-12-07 05:29] VITALS: BP 137/92
[2019-12-07 06:58] VITALS: BP 119/85
[2019-12-07] MEDS: RisperiDONE 2 MG TABLET PO SCH ×2 (07:34→20:46)
[2019-12-07] MEDS: ALPRAZolam 0.5 MG TABLET PO SCH ×3 (07:34→20:46)
[2019-12-07] MEDS: ESCITALOPRAM OXALATE 10 MG TABLET PO SCH (07:34)
[2019-12-07] MEDS: DIVALPROEX SODIUM 250 MG DR TABLET PO SCH (07:35)
[2019-12-07] MEDS: BENZTROPINE MESYLATE 0.5 MG TABLET PO SCH (07:35)
[2019-12-07] MEDS: DOCUSATE SODIUM 100 MG CAPSULE PO SCH ×2 (07:35→20:47)
[2019-12-07 07:46] LABS: BASOPHILS % (AUTO) 0.2 % (0.0-2.0); EOSINOPHILS % (AUTO) 0.2 % (1.0-6.0); HEMATOCRIT 29.5 % (41-53); HEMOGLOBIN 10.2 g/dL (13.5-17.5); LYMPHOCYTES # (AUTO) 0.2 K/uL (1.0-4.8); LYMPHOCYTES % (AUTO) 3.6 % (22.0-44.0); MEAN CORPUSCULAR HGB CONC 34.7 G/dL (31.0-37.0); MEAN CORPUSCULAR VOLUME 95 fL (80-100); MONOCYTES # (AUTO) 0.4 K/uL (0.1-1.0); MONOCYTES % (AUTO) 5.1 % (2.0-9.0); NEUTROPHILS # (AUTO) 6.3 K/uL (1.8-7.7); PLATELET COUNT (AUTO) 83 K/uL (150-450); RED CELL DISTRIBUTION WIDTH 13.7 % (11.5-14.5)
[2019-12-07 07:47] LABS: NEUTROPHILS % (AUTO) 90.9 % (40.0-70.0)
[2019-12-07 07:56] LABS: ANION GAP 9 mmol/L (8-16); CALCIUM, TOTAL 8.6 mg/dL (8.8-10.5); CARBON DIOXIDE 26 mmol/L (22-29); CHLORIDE 105 mmol/L (98-107); CREATININE 0.58 mg/dL (0.60-1.30); GLOMERULAR FILTR. RATE CALC > 60 mL/min (>60); GLUCOSE,RANDOM 110 mg/dL (70-110); POTASSIUM 3.8 mmol/L (3.5-5.1); SODIUM SERUM 140 mmol/L (136-145); UREA NITROGEN, BLOOD 11 mg/dL (7-18)
[2019-12-07] MEDS: HYDROCODONE/ACETAMINOPHEN 5-325 MG TABLET PO PRN (18:00)
[2019-12-07] MEDS: TraZODone HCL 50 MG TABLET PO SCH (20:46)
[2019-12-07 20:55] VITALS: BP 131/89
[2019-12-08 03:37] VITALS: BP 130/90
[2019-12-08] MEDS: HYDROCODONE/ACETAMINOPHEN 5-325 MG TABLET PO PRN (04:32)
[2019-12-08 07:48] VITALS: BP 134/92
[2019-12-08] MEDS: DOCUSATE SODIUM 100 MG CAPSULE PO SCH (08:03)
[2019-12-08] MEDS: BENZTROPINE MESYLATE 0.5 MG TABLET PO SCH (08:03)
[2019-12-08] MEDS: ALPRAZolam 0.5 MG TABLET PO SCH (08:04)
[2019-12-08] MEDS: ESCITALOPRAM OXALATE 10 MG TABLET PO SCH (08:04)
[2019-12-08] MEDS: DIVALPROEX SODIUM 250 MG DR TABLET PO SCH (08:04)
[2019-12-08] MEDS: RisperiDONE 2 MG TABLET PO SCH (09:00)
[2019-12-08] MEDS ORDERED: ACET-3207 PO (09:24)
[2019-12-08] MEDS ORDERED: HYDR-3290 PO (09:24)
[2019-12-08] MEDS ORDERED: BISA10SU11 PR (09:24)
[2019-12-08] MEDS ORDERED: ALPR0.5T8 PO (09:26)
[2019-12-08 11:12] VITALS: BP 130/95
[2019-12-08 15:22] VITALS: BP 142/95
== END 2019-12-08 16:09 | DRG 253 ==
LOC: EMS 17:23 → 6N 12-04 00:18
PROVIDERS: ADMIT Internal Medicine; ATTEND Internal Medicine
DX: K92.2 Gastrointestinal hemorrhage, unspecified (principal); R45.851 Suicidal ideations; F25.1 Schizoaffective disorder, depressive type; K22.70 Barrett's esophagus without dysplasia; K44.9 Diaphragmatic hernia without obstruction or gangrene; F79 Unspecified intellectual disabilities; K21.9 Gastro-esophageal reflux disease without esophagitis; I10 Essential (primary) hypertension; F32.9 Major depressive disorder, single episode, unspecified; K92.0 Hematemesis; Z90.49 Acquired absence of other specified parts of digestive tract
CPT/HCPCS: 74176; 85014; 85018; 87081; 96374; 96375; 97116; 97162; 97166; 97530; 97535; C9113; G0480; J1630; J2060; J2270; J2405; J7030; J7050

== ENCOUNTER 2024-01-30 12:59 | Inpatient (IN) | payer MEDICARE, MEDICAID ==
[~2024-01-30] VITALS: Ht 157.5 cm; Wt 54.5 kg
[~2024-01-30 12:59] MED LIST changes: +ACET-3207 PO; +ALPR-707 PO; -BENZ0.5T44 PO; +BENZ0.5T6 PO; +BISA10SU11 PR; +DIVA-111 PO; -DIVA-76 PO; -DOCU-275 PO; +ESCI-8 PO; -ESCI10TA PO; +HYDR-4396 PO; -LORA-999 PO; -MULT-723 PO; +PANT-31 PO; -PANT40TA25 PO; -QUET200T PO; -RISP2 PO; +RISP2TAB45 PO
[2024-01-30 13:30] LABS: COVID AG,FIA SOURCE NASAL SWAB
[2024-01-30 13:56] LABS: BASOPHILS % (AUTO) 0.7 % (0.0-2.0); HEMATOCRIT 29.5 % (41-53); HEMOGLOBIN 9.1 g/dL (13.5-17.5); LYMPHOCYTES # (AUTO) 1.3 K/uL (1.0-4.8); LYMPHOCYTES % (AUTO) 24.8 % (22.0-44.0); MEAN CORPUSCULAR HEMOGLOBIN 22.9 pg (26.0-34.0); MEAN CORPUSCULAR HGB CONC 30.9 G/dL (31.0-37.0); MEAN CORPUSCULAR VOLUME 74 fL (80-100); MONOCYTES # (AUTO) 0.6 K/uL (0.1-1.0); MONOCYTES % (AUTO) 11.4 % (2.0-9.0); NEUTROPHILS # (AUTO) 3.2 K/uL (1.8-7.7); NEUTROPHILS % (AUTO) 61.1 % (40.0-70.0); PLATELET COUNT (AUTO) 99 K/uL (150-450); RED BLOOD CELL COUNT(AUTO) 3.98 MIL/uL (4.50-5.90); RED CELL DISTRIBUTION WIDTH 19.4 % (11.5-14.5); WHITE BLOOD COUNT (AUTO) 5.3 K/uL (4.5-11.0)
[2024-01-30 13:59] LABS: ALCOHOL, BLOOD (SERUM) < 3 mg/dL (0-10)
[2024-01-30 14:01] LABS: ANION GAP 10 mmol/L (8-16); CALCIUM, TOTAL 8.6 mg/dL (8.8-10.5); CARBON DIOXIDE 27 mmol/L (22-29); CHLORIDE 101 mmol/L (98-107); CREATININE 0.71 mg/dL (0.60-1.30); GLOMERULAR FILTR. RATE CALC > 60 mL/min (>60); GLUCOSE,RANDOM 97 mg/dL (70-110); SODIUM SERUM 137 mmol/L (136-145); UREA NITROGEN, BLOOD 22 mg/dL (7-18)
[2024-01-30 14:04] LABS: ALANINE AMINOTRANSFERASE 16 U/L (12-78); ALBUMIN 3.4 g/dL (3.4-5.0); ALKALINE PHOSPHATASE 65 U/L (46-116); ASPARTATE AMINOTRANSFERASE 24 U/L (15-37); BILIRUBIN,TOTAL 0.4 mg/dL (0.1-1.0)
[2024-01-30 14:10] LABS: SARS-COV2 (COVID) ANTIGEN,FIA Negative (Negative)
[2024-01-30 14:24] LABS: RBC MORPHOLOGY COMMENT ABNORMAL RBC MORPH
[2024-01-30] MEDS: TraZODone HCL 50 MG TABLET PO ONE (15:23)
[2024-01-30] MEDS: GABAPENTIN 300 MG CAPSULE PO ONE (15:24)
[2024-01-30] MEDS: RisperiDONE 1 MG TABLET PO ONE (15:26)
[2024-01-30 15:58] LABS: PH,URINE DRUG SCREEN 5.5 (5.0-8.0)
[2024-01-30 16:11] LABS: ALCOHOL, URINE DRUG SCREEN NEGATIVE (NEGATIVE); AMPHET/METH SCREEN,URINE NEGATIVE (NEGATIVE); BARBITURATE SCREEN, URINE NEGATIVE (NEGATIVE); BENZODIAZEPINES SCREEN,URINE NEGATIVE (NEGATIVE); CANNABINOID SCREEN,URINE NEGATIVE (NEGATIVE); COCAINE SCREEN,URINE NEGATIVE (NEGATIVE); METHADONE SCREEN, URINE NEGATIVE (NEGATIVE); OPIATE SCREEN,URINE NEGATIVE (NEGATIVE); PHENCYCLIDINE SCREEN,URINE NEGATIVE (NEGATIVE)
[2024-01-30] MEDS ORDERED: ALBUTEROL SULFATE HFA 90 MCG/PUFF 8 GM INHALER IH PRN (16:15)
[2024-01-30] MEDS: LORazepam 2 MG/ML VIAL IM ONE (16:29)
[2024-01-30] MEDS: DiphenhydrAMINE HCL 50 MG/ML VIAL IM ONE (16:30)
[2024-01-30] MEDS ORDERED: LORazepam 2 MG TABLET PO PRN (22:15)
[2024-01-30] MEDS ORDERED: HALOPERIDOL 5 MG TABLET PO PRN (22:15)
[2024-01-30] MEDS ORDERED: ZOLPIDEM TARTRATE 10 MG TABLET PO PRN (22:15)
[2024-01-30 22:59] LABS: APPEARANCE,URINE CLEAR (CLEAR); BILIRUBIN,URINE NEGATIVE (NEGATIVE); COLOR,URINE LIGHT YELLOW (YELLOW); GLUCOSE, URINE (UA) NEGATIVE (NEGATIVE); KETONES,URINE NEGATIVE (NEGATIVE); LEUKOCYTE ESTERASE ,URINE NEGATIVE (NEGATIVE); NITRATE,URINE NEGATIVE (NEGATIVE); OCCULT BLOOD,URINE NEGATIVE (NEGATIVE); PROTEIN,URINE NEGATIVE (NEGATIVE); SPECIFIC GRAVITIY, URINE 1.007 (1.003-1.030); UROBILINOGEN,URINE <=1.0 mg/dL (<=1.0)
[2024-01-30 23:06] LABS: AMPHET/METH SCREEN,URINE NEGATIVE (NEGATIVE); BARBITURATE SCREEN, URINE NEGATIVE (NEGATIVE); BENZODIAZEPINES SCREEN,URINE NEGATIVE (NEGATIVE); CANNABINOID SCREEN,URINE NEGATIVE (NEGATIVE); COCAINE SCREEN,URINE NEGATIVE (NEGATIVE); METHADONE SCREEN, URINE NEGATIVE (NEGATIVE); OPIATE SCREEN,URINE NEGATIVE (NEGATIVE); PHENCYCLIDINE SCREEN,URINE NEGATIVE (NEGATIVE)
[2024-01-30 23:18] LABS: ALCOHOL, URINE DRUG SCREEN NEGATIVE (NEGATIVE)
[2024-01-31 04:31] VITALS: BP 115/79; PULSE 95; RESP 18; TEMP 100.5; O2SAT 96
[2024-01-31] MEDS ORDERED: LOPERAMIDE HCL 2 MG CAPSULE PO PRN (04:45)
[2024-01-31] MEDS ORDERED: GuaiFENesin/D-METHORPHAN [SUGAR-FREE] 200-20MG/10 ML SYRUP UDCUP PO PRN (04:45)
[2024-01-31] MEDS ORDERED: ALBUTEROL SULFATE HFA 90 MCG/PUFF 8 GM INHALER IH PRN (04:45)
[2024-01-31] MEDS ORDERED: MAG HYDROX/ALUMINUM HYD/SIMETH ES 30 ML SUSPENSION UDCUP PO PRN (04:45)
[2024-01-31] MEDS ORDERED: PETROLATUM,WHITE 28 GM JELLY TP PRN (04:45)
[2024-01-31] MEDS ORDERED: CloNIDine HCL 0.1 MG TABLET PO PRN (04:45)
[2024-01-31] MEDS ORDERED: DOCUSATE SODIUM 100 MG CAPSULE PO PRN (04:45)
[2024-01-31] MEDS ORDERED: MAGNESIUM HYDROXIDE SUSPENSION 30 ML UDCUP PO PRN (04:45)
[2024-01-31] MEDS ORDERED: ONDANSETRON HCL 4 MG TABLET PO PRN (04:45)
[2024-01-31 05:00] VITALS: RESP 18
[2024-01-31] MEDS: IBUPROFEN 400 MG TABLET PO PRN (05:10)
[2024-01-31] MEDS: ACETAMINOPHEN 325 MG TABLET PO PRN (06:30)
[2024-01-31] MEDS ORDERED: PNEUMOCOCCAL VACCINE POLYVALENT 0.5 ML SYRINGE [PPSV23] IM. ONE (06:45)
[2024-01-31 09:16] VITALS: BP 70/43; PULSE 80; RESP 17; TEMP 97.6; O2SAT 94
[2024-01-31 09:49] VITALS: BP 84/45; PULSE 107; RESP 18; O2SAT 95
== END 2024-01-31 13:39 | disposition short-term general hospital (02) | DRG 750 ==
LOC: EMS 12:59 → B3A 01-31 01:32
PROVIDERS: ADMIT Psychiatry & Neurology Child & Adolescent Psychiatry; ATTEND Psychiatry & Neurology Child & Adolescent Psychiatry
DX: F25.1 Schizoaffective disorder, depressive type (principal); A41.9 Sepsis, unspecified organism; R45.851 Suicidal ideations; F32.A Depression, unspecified; I10 Essential (primary) hypertension; Z20.822 Contact with and (suspected) exposure to COVID-19; D64.9 Anemia, unspecified; K21.9 Gastro-esophageal reflux disease without esophagitis; Z79.899 Other long term (current) drug therapy; Z90.49 Acquired absence of other specified parts of digestive tract
CPT/HCPCS: 80053; 80307; 81003; 85025; 87081; 99285; G0480; J1200; J2060

== ENCOUNTER 2024-01-31 09:43 | Inpatient (IN) | payer MEDICARE, OTHER ==
[~2024-01-31] VITALS: Ht 157.5 cm; Wt 77.1 kg
[2024-01-31] MEDS ORDERED: 0.9% SODIUM CHLORIDE 10 ML SYRINGE IVP PRN (10:00)
[2024-01-31] MEDS: SODIUM CHLORIDE 0.9% 1,800 ML IV ONE ×2 (10:41)
[2024-01-31] MEDS: ACETAMINOPHEN 1000 MG/ISO-OSM 100 ML IV ONE ×2 (10:42)
[2024-01-31] MEDS: ONDANSETRON HCL 4 MG/2 ML VIAL IVP ONE (10:42)
[2024-01-31 11:00] LABS: BASOPHILS % (AUTO) 0.2 % (0.0-2.0); EOSINOPHILS % (AUTO) 0.2 % (1.0-6.0); HEMATOCRIT 30.1 % (41-53); HEMOGLOBIN 9.2 g/dL (13.5-17.5); LYMPHOCYTES # (AUTO) 1.3 K/uL (1.0-4.8); LYMPHOCYTES % (AUTO) 9.8 % (22.0-44.0); MEAN CORPUSCULAR HEMOGLOBIN 22.6 pg (26.0-34.0); MEAN CORPUSCULAR HGB CONC 30.6 G/dL (31.0-37.0); MEAN CORPUSCULAR VOLUME 74 fL (80-100); MONOCYTES # (AUTO) 1.4 K/uL (0.1-1.0); MONOCYTES % (AUTO) 10.3 % (2.0-9.0); NEUTROPHILS # (AUTO) 10.7 K/uL (1.8-7.7); NEUTROPHILS % (AUTO) 79.5 % (40.0-70.0); PLATELET COUNT (AUTO) 100 K/uL (150-450); RED BLOOD CELL COUNT(AUTO) 4.08 MIL/uL (4.50-5.90); RED CELL DISTRIBUTION WIDTH 19.7 % (11.5-14.5); WHITE BLOOD COUNT (AUTO) 13.5 K/uL (4.5-11.0)
[2024-01-31 11:12] LABS: ANION GAP 12 mmol/L (8-16); CALCIUM, TOTAL 8.7 mg/dL (8.8-10.5); CARBON DIOXIDE 27 mmol/L (22-29); CHLORIDE 102 mmol/L (98-107); CREATININE 1.44 mg/dL (0.60-1.30); GLOMERULAR FILTR. RATE CALC 49 mL/min (>60); GLUCOSE,RANDOM 101 mg/dL (70-110); POTASSIUM 3.7 mmol/L (3.5-5.1); SODIUM SERUM 141 mmol/L (136-145); UREA NITROGEN, BLOOD 33 mg/dL (7-18)
[2024-01-31 11:13] LABS: INFLUENZA TYPE A NEGATIVE FOR TYPE A (NEGATIVE); INFLUENZA TYPE B NEGATIVE FOR TYPE B (NEGATIVE)
[2024-01-31 11:14] LABS: B-TYPE NATRIURETIC PEPTIDE 98 pg/mL (0-100)
[2024-01-31 11:15] LABS: INR 1.1 (0.9-1.1); PROTHROMBIN TIME 11.3 SEC (9.4-11.6)
[2024-01-31 11:29] LABS: RBC MORPHOLOGY COMMENT ABNORMAL RBC MORPH
[2024-01-31] MEDS ORDERED: ACETAMINOPHEN 325 MG TABLET PO PRN (11:30)
[2024-01-31] MEDS ORDERED: BISACODYL 10 MG RECTAL RECTAL SUPPOSITORY PR PRN (11:30)
[2024-01-31 11:34] LABS: LACTIC ACID 2.5 mmol/L (0.4-2.0)
[2024-01-31 11:41] LABS: ALANINE AMINOTRANSFERASE 13 U/L (12-78); ALBUMIN 3.4 g/dL (3.4-5.0); ALKALINE PHOSPHATASE 51 U/L (46-116); ASPARTATE AMINOTRANSFERASE 17 U/L (15-37); BILIRUBIN,TOTAL 0.4 mg/dL (0.1-1.0); CREATINE KINASE, TOTAL ONLY 110 U/L (39-308); TOTAL PROTEIN, SERUM 7.5 g/dL (6.4-8.2)
[2024-01-31] MEDS: PIPERACILLIN/TAZO 3.375 GM/D5W 50 ML IV SCH (12:00)
[2024-01-31] MEDS: SODIUM CHLORIDE 0.9% 1,000 ML IV ONE (12:03)
[2024-01-31] MEDS: VANCOMYCIN 1.5 GM/WATER(PEG) 300 ML IV ONE (12:46)
[2024-01-31 12:59] LABS: TROPONIN I-HIGH SENSITIVITY 15 ng/L (<76)
[2024-01-31 13:43] LABS: INFLUENZA A-RTPCR,COMBO NEGATIVE (NEGATIVE); INFLUENZA B-RTPCR,COMBO NEGATIVE (NEGATIVE); RESPIRATORY SYNCYTIAL VRS-PCR NEGATIVE (NEGATIVE); SARS COVID19 RTPCR, COMBO NEGATIVE (NEGATIVE)
[2024-01-31] MEDS: LORazepam 2 MG/ML VIAL IVP ONE (15:01)
[2024-01-31] MEDS: ONDANSETRON HCL 4 MG/2 ML VIAL IVP PRN (15:23)
[2024-01-31] MEDS: HEPARIN SODIUM,PORCINE 5,000 UNITS/ML VIAL SQ SCH (17:15)
[2024-01-31 17:19] VITALS: BP 154/73; PULSE 72; RESP 18; TEMP 97.7; O2SAT 95
[2024-01-31 19:55] LABS: OCCULT BLOOD,GASTRIC FLUID POSITIVE (NEGATIVE); PH, GASTRIC OKAY
[2024-01-31 20:57] VITALS: BP 158/114; PULSE 87; RESP 19; TEMP 97.5
[2024-01-31 23:58] VITALS: BP 158/98; PULSE 88; RESP 20; TEMP 98.7
[2024-02-01] VITALS (7 sets, daily range): BP systolic 138–175; BP diastolic 80–94; PULSE 70–98; RESP 19–36; TEMP 98–98.8; O2SAT 97–98
[2024-02-01] MEDS ORDERED: SODIUM CHLORIDE 0.9% 250 ML IV ONE (01:27)
[2024-02-01] MEDS: PANTOPRAZOLE SODIUM 80 MG in SODIUM CHLORIDE 0.9% 100 ML IV SCH (02:00)
[2024-02-01] MEDS: MORPHINE SULFATE 2 MG/ML SYRINGE IVP ONE (03:07)
[2024-02-01 06:50] LABS: BASOPHILS % (AUTO) 0.3 % (0.0-2.0); EOSINOPHILS % (AUTO) 0.7 % (1.0-6.0); HEMATOCRIT 24.4 % (41-53); HEMOGLOBIN 7.7 g/dL (13.5-17.5); LYMPHOCYTES # (AUTO) 1.4 K/uL (1.0-4.8); LYMPHOCYTES % (AUTO) 21.8 % (22.0-44.0); MEAN CORPUSCULAR HEMOGLOBIN 23.3 pg (26.0-34.0); MEAN CORPUSCULAR HGB CONC 31.4 G/dL (31.0-37.0); MEAN CORPUSCULAR VOLUME 74 fL (80-100); MONOCYTES # (AUTO) 0.6 K/uL (0.1-1.0); NEUTROPHILS # (AUTO) 4.5 K/uL (1.8-7.7); NEUTROPHILS % (AUTO) 68.2 % (40.0-70.0); PLATELET COUNT (AUTO) 85 K/uL (150-450); RED BLOOD CELL COUNT(AUTO) 3.29 MIL/uL (4.50-5.90); RED CELL DISTRIBUTION WIDTH 19.4 % (11.5-14.5); WHITE BLOOD COUNT (AUTO) 6.6 K/uL (4.5-11.0)
[2024-02-01 07:01] LABS: ANION GAP 8 mmol/L (8-16); CALCIUM, TOTAL 7.5 mg/dL (8.8-10.5); CARBON DIOXIDE 25 mmol/L (22-29); CHLORIDE 111 mmol/L (98-107); CREATININE 0.68 mg/dL (0.60-1.30); GLOMERULAR FILTR. RATE CALC > 60 mL/min (>60); GLUCOSE,RANDOM 106 mg/dL (70-110); POTASSIUM 3.6 mmol/L (3.5-5.1); SODIUM SERUM 144 mmol/L (136-145); UREA NITROGEN, BLOOD 35 mg/dL (7-18)
[2024-02-01] MEDS: VANCOMYCIN 1GM/WATER(PEG/NADA) 200 ML IV SCH ×2 (08:52→21:58)
[2024-02-01] MEDS: PANTOPRAZOLE SODIUM 40 MG/VIAL IVP SCH (08:53)
[2024-02-01 09:00] LABS: RBC MORPHOLOGY COMMENT ABNORMAL RBC MORPH
[2024-02-01] MEDS: LORazepam 2 MG/ML VIAL IM PRN (13:35)
[2024-02-01] MEDS: ALBUTEROL SULFATE 2.5 MG/0.5 ML NEB SOLUTION NEB PRN (19:10)
[2024-02-01] MEDS: IPRATROPIUM BROMIDE 0.5 MG/2.5 ML NEB SOLUTION NEB PRN (19:10)
[2024-02-02] VITALS (8 sets, daily range): BP systolic 143–169; BP diastolic 57–109; PULSE 68–77; RESP 19–20; TEMP 97.3–98.5
[2024-02-02 07:43] LABS: ANION GAP 8 mmol/L (8-16); CALCIUM, TOTAL 7.9 mg/dL (8.8-10.5); CARBON DIOXIDE 24 mmol/L (22-29); CHLORIDE 111 mmol/L (98-107); CREATININE 0.62 mg/dL (0.60-1.30); GLOMERULAR FILTR. RATE CALC > 60 mL/min (>60); GLUCOSE,RANDOM 89 mg/dL (70-110); POTASSIUM 3.7 mmol/L (3.5-5.1); SODIUM SERUM 143 mmol/L (136-145); UREA NITROGEN, BLOOD 26 mg/dL (7-18)
[2024-02-02] MEDS ORDERED: METO25 PO (19:23)
[2024-02-02] MEDS ORDERED: OXYC5TAB3 PO (19:29)
[2024-02-02] MEDS ORDERED: CLON0.1T2 PO (19:29)
[2024-02-02] MEDS ORDERED: TRAZ-283 PO (19:29)
[2024-02-02] MEDS ORDERED: LORA-999 PO (19:29)
[2024-02-02] MEDS ORDERED: DIVA-112 PO (19:29)
[2024-02-02] MEDS ORDERED: RISP3TAB35 PO (19:29)
[2024-02-02] MEDS ORDERED: LIDO1ADH72 TP (19:29)
[2024-02-02] MEDS ORDERED: OxyCODONE HCL 5 MG IR TABLET PO PRN (19:30)
[2024-02-02] MEDS: DIVALPROEX SODIUM 500 MG DR TABLET PO SCH (20:40)
[2024-02-02] MEDS: CloNIDine HCL 0.1 MG TABLET PO SCH (20:40)
[2024-02-02] MEDS: METOPROLOL TARTRATE 50 MG TABLET PO SCH (20:40)
[2024-02-02] MEDS: RisperiDONE 3 MG TABLET PO SCH (20:41)
[2024-02-02] MEDS: VALPROATE SODIUM IV SCH (22:07)
[2024-02-02] MEDS: WATER IV SCH (22:07)
[2024-02-02] MEDS: DEXTROSE 5% IV SCH (22:07)
[2024-02-02] MEDS: LORazepam 0.5 MG TABLET PO PRN (23:43)
[2024-02-03 04:52] VITALS: BP 138/91; PULSE 64; RESP 18; TEMP 98.9
[2024-02-03 07:57] LABS: ANION GAP 9 mmol/L (8-16); CALCIUM, TOTAL 7.8 mg/dL (8.8-10.5); CARBON DIOXIDE 25 mmol/L (22-29); CHLORIDE 105 mmol/L (98-107); CREATININE 0.59 mg/dL (0.60-1.30); GLOMERULAR FILTR. RATE CALC > 60 mL/min (>60); GLUCOSE,RANDOM 99 mg/dL (70-110); POTASSIUM 3.7 mmol/L (3.5-5.1); SODIUM SERUM 139 mmol/L (136-145); UREA NITROGEN, BLOOD 17 mg/dL (7-18); VANCOMYCIN,RANDOM 13.7 mcg/mL (25.0-50.0)
[2024-02-03 07:58] VITALS: BP 166/89; PULSE 66; RESP 18; TEMP 97.9
[2024-02-03 11:27] VITALS: BP 130/86; PULSE 63; RESP 16; TEMP 98
[2024-02-03] MEDS ORDERED: ACET-2247 PO (13:29)
[2024-02-03] MEDS ORDERED: ALBU18HF12 IH (13:31)
[2024-02-03] MEDS: FLUTICASONE PROPIONATE 50 MCG/SPRAY 16 GM NASAL SPRAY NASAL SCH (14:32)
[2024-02-03 15:42] VITALS: BP 119/87; PULSE 75; RESP 18; TEMP 97.7
[2024-02-03 20:05] VITALS: BP 122/80; PULSE 74; RESP 18; TEMP 98
[2024-02-03] MEDS: VANCOMYCIN 1.25 GM/WATER(PEG) 250 ML IV SCH (20:16)
[2024-02-03 23:23] VITALS: BP 146/97; PULSE 66; RESP 18; TEMP 97.9
[2024-02-04 05:38] VITALS: BP 141/96; PULSE 66; RESP 18; TEMP 98.2
[2024-02-04 08:12] VITALS: BP 148/88; PULSE 67; RESP 18; TEMP 97.7
[2024-02-04 11:37] LABS: BASOPHILS % (AUTO) 0.6 % (0.0-2.0); EOSINOPHILS % (AUTO) 3.2 % (1.0-6.0); HEMATOCRIT 25.7 % (41-53); HEMOGLOBIN 7.8 g/dL (13.5-17.5); LYMPHOCYTES # (AUTO) 1.1 K/uL (1.0-4.8); LYMPHOCYTES % (AUTO) 26.6 % (22.0-44.0); MEAN CORPUSCULAR HEMOGLOBIN 23.1 pg (26.0-34.0); MEAN CORPUSCULAR HGB CONC 30.5 G/dL (31.0-37.0); MEAN CORPUSCULAR VOLUME 76 fL (80-100); MONOCYTES # (AUTO) 0.4 K/uL (0.1-1.0); MONOCYTES % (AUTO) 10.4 % (2.0-9.0); NEUTROPHILS # (AUTO) 2.4 K/uL (1.8-7.7); NEUTROPHILS % (AUTO) 59.2 % (40.0-70.0); PLATELET COUNT (AUTO) 90 K/uL (150-450); RED BLOOD CELL COUNT(AUTO) 3.38 MIL/uL (4.50-5.90); RED CELL DISTRIBUTION WIDTH 19.3 % (11.5-14.5)
[2024-02-04 11:45] LABS: ANION GAP 9 mmol/L (8-16); CARBON DIOXIDE 27 mmol/L (22-29); CHLORIDE 107 mmol/L (98-107); GLOMERULAR FILTR. RATE CALC > 60 mL/min (>60); GLUCOSE,RANDOM 113 mg/dL (70-110); POTASSIUM 4.2 mmol/L (3.5-5.1); SODIUM SERUM 143 mmol/L (136-145); UREA NITROGEN, BLOOD 13 mg/dL (7-18)
[2024-02-04 11:46] VITALS: BP 145/96; PULSE 75; RESP 19; TEMP 97.8
[2024-02-04 11:54] LABS: RBC MORPHOLOGY COMMENT ABNORMAL RBC MORPH
[2024-02-04 12:00] VITALS: PULSE 86; RESP 20; O2SAT 98
[2024-02-04 12:01] VITALS: PULSE 86; RESP 20; O2SAT 98
[2024-02-04 15:16] VITALS: BP 142/97; PULSE 83; RESP 19; TEMP 98
== END 2024-02-04 16:40 | DRG 720 ==
LOC: EMS 09:43 → 5S 13:06
PROVIDERS: ADMIT Internal Medicine; ATTEND Internal Medicine
DX: A41.9 Sepsis, unspecified organism (principal); G92.9 Unspecified toxic encephalopathy; D69.6 Thrombocytopenia, unspecified; K21.9 Gastro-esophageal reflux disease without esophagitis; F32.A Depression, unspecified; Z20.822 Contact with and (suspected) exposure to COVID-19; F20.9 Schizophrenia, unspecified; I10 Essential (primary) hypertension; Z90.49 Acquired absence of other specified parts of digestive tract; Z79.899 Other long term (current) drug therapy
CPT/HCPCS: 0241U; 71045; 80048; 80053; 80202; 82271; 82550; 83605; 83735; 83880; 84145; 84484; 85025; 85610; 87040; 87077; 87205; 87804; 92526; 92610; 93005; 94640; 99285; C9113; J0131; J1644; J2060; J2270; J2405; J2543; J3490; J7030; J7050; J7060; Q9967; 36415-L1; 36415-TC; J7613